=== PATIENT | female | born 1975 | race Caucasian/White ===

== ENCOUNTER 2017-12-29 16:10 | Inpatient (IN) | payer MEDICAID ==
[2017-12-29 16:49] LABS: ADD MAN DIFF? NO
[2017-12-29 16:56] LABS: WHITE BLOOD COUNT 10.2 10^3/ul (4.8-10.8)
[2017-12-29 16:56] LABS: BASOPHILS % 0.2 % (0.0-2.0); EOSINOPHILS # 0.1 10^3/ul (0.0-0.5); EOSINOPHILS % 0.5 % (0.0-7.0); HEMATOCRIT 32.6 % (37.0-47.0); HEMOGLOBIN 11.3 g/dl (12.0-16.0); LYMPHOCYTES # 1.3 10^3/ul (0.8-2.9); LYMPHOCYTES % 12.9 % (15.0-51.0); MEAN CORPUSCULAR HEMOGLOBIN 31.3 pg (29.0-33.0); MEAN CORPUSCULAR HGB CONC 34.7 g/dl (32.0-37.0); MEAN CORPUSCULAR VOLUME 90.3 fl (82.0-101.0); MEAN PLATELET VOLUME 10.5 fl (7.4-10.4); MONOCYTE # 0.7 10^3/ul (0.3-0.9); MONOCYTES % 7.2 % (0.0-11.0); NEUTROPHILS % 78.8 % (39.0-77.0); PLATELET COUNT 137 10^3/UL (140-415); RED BLOOD COUNT 3.61 10^6/ul (4.20-5.40); RED CELL DISTRIBUTION WIDTH 14.8 % (11.5-14.5)
[2017-12-29] MEDS: ACETAMINOPHEN 325 MG TAB PO ×3 (16:58→22:18)
[2017-12-29] MEDS: LABETALOL HCL 20MG INJ IV ×3 (16:59→19:24)
[2017-12-29] MEDS ORDERED: ONDANSETRON 4 MG INJ IV (17:00)
[2017-12-29 17:07] LABS: ADD UMIC YES; UR ASCORBIC ACID NEGATIVE (NEGATIVE); UR BACTERIA MANY /HPF (NONE SEEN); UR BILIRUBIN (Dip) NEGATIVE (NEGATIVE); UR BLOOD (Dip) 1+ mg/dL (NEGATIVE); UR CLARITY CLOUDY (CLEAR); UR COLOR YELLOW (YELLOW); UR GLUCOSE (Dip) NEGATIVE (NEGATIVE); UR KETONES (Dip) NEGATIVE (NEGATIVE); UR LEUKOCYTE ESTERASE (Dip) 3+ Leu/ul (NEGATIVE); UR NITRITE (Dip) NEGATIVE (NEGATIVE); UR RBC 47 /HPF (0-5); UR SPECIFIC GRAVITY (Dip) 1.014 (1.003-1.030); UR SQUAMOUS EPITHELIAL CELL MODERATE /HPF (FEW); UR TOTAL PROTEIN (Dip) 2+ mg/dl (NEGATIVE); UR UROBILINOGEN (Dip) NEGATIVE (NEGATIVE); UR WBC 83 /HPF (0-5)
[2017-12-29 17:14] LABS: ALANINE AMINOTRANSFERASE 82 IU/L (13-69); ALBUMIN 3.6 g/dl (3.3-4.9); ALKALINE PHOSPHATASE 103 IU/L (42-121); ANION GAP 11 (8-16); ASPARTATE AMINO TRANSFERASE 62 IU/L (15-46); BILIRUBIN,INDIRECT 0.6 mg/dl (0-1.1); BILIRUBIN,TOTAL 0.6 mg/dl (0.2-1.3); BLOOD UREA NITROGEN 38 mg/dl (7-20); CALCIUM 8.9 mg/dl (8.4-10.2); CARBON DIOXIDE 18 mmol/L (21-31); CHLORIDE 114 mmol/L (97-110); CREATININE 2.22 mg/dl (0.44-1.00); GLUCOSE 102 mg/dl (70-220); POTASSIUM 4.1 mmol/L (3.5-5.1); SODIUM 139 mmol/L (135-144); TOTAL PROTEIN 6.6 g/dl (6.1-8.1)
[2017-12-29] MEDS: CEFTRIAXONE 1 GM/50 ML (PMX) 50 ML IVPB (18:17)
[2017-12-29] MEDS ORDERED: NACL 0.9% 3 ML SYG IV (18:30)
[2017-12-29] MEDS: hydrALAzine 20 MG INJ IV (19:19)
[2017-12-29] MEDS: LABETALOL 200 MG TAB PO (22:16)
[2017-12-30] MEDS: hydrALAzine 20 MG INJ IV (00:30)
[2017-12-30] MEDS: ONDANSETRON 4 MG INJ IV (03:36)
[2017-12-30] MEDS: ACETAMINOPHEN 325 MG TAB PO ×2 (05:13→14:03)
[2017-12-30 06:48] LABS: ADD MAN DIFF? NO
[2017-12-30 07:14] LABS: ALANINE AMINOTRANSFERASE 92 IU/L (13-69); ALBUMIN 3.2 g/dl (3.3-4.9); ALKALINE PHOSPHATASE 75 IU/L (42-121); ANION GAP 12 (8-16); ASPARTATE AMINO TRANSFERASE 78 IU/L (15-46); BILIRUBIN,INDIRECT 0.4 mg/dl (0-1.1); BILIRUBIN,TOTAL 0.4 mg/dl (0.2-1.3); BLOOD UREA NITROGEN 31 mg/dl (7-20); CALCIUM 8.8 mg/dl (8.4-10.2); CARBON DIOXIDE 16 mmol/L (21-31); CHLORIDE 115 mmol/L (97-110); CHOL/HDL RATIO 2.9 RATIO; CHOLESTEROL 144 mg/dl (100-200); GLUCOSE 110 mg/dl (70-220); HDL CHOLESTEROL 49 mg/dl (34-88); LDL CHOLESTEROL,CALCULATED 54 mg/dl; POTASSIUM 4.3 mmol/L (3.5-5.1); SODIUM 139 mmol/L (135-144); TOTAL PROTEIN 6.1 g/dl (6.1-8.1); TRIGLYCERIDES 203 mg/dl (0-149)
[2017-12-30 07:14] LABS: MAGNESIUM 2.1 mg/dl (1.7-2.5)
[2017-12-30 07:15] LABS: PHOSPHORUS 3.8 mg/dl (2.5-4.9)
[2017-12-30 07:29] LABS: FREE T4 (FREE THYROXINE) 1.39 ng/dl (0.64-1.79)
[2017-12-30 07:43] LABS: THYROID STIMULATING HORMONE 0.784 MIU/L (0.465-4.680)
[2017-12-30] MEDS: PRENATAL VITAMIN PO (07:59)
[2017-12-30] MEDS: LABETALOL 200 MG TAB PO ×2 (08:03→20:35)
[2017-12-30 08:05] LABS: BASOPHILS % 0.3 % (0.0-2.0); HEMATOCRIT 28.9 % (37.0-47.0); HEMOGLOBIN 9.9 g/dl (12.0-16.0); LYMPHOCYTES # 1.1 10^3/ul (0.8-2.9); LYMPHOCYTES % 13.8 % (15.0-51.0); MEAN CORPUSCULAR HGB CONC 34.3 g/dl (32.0-37.0); MEAN CORPUSCULAR VOLUME 90.6 fl (82.0-101.0); MEAN PLATELET VOLUME 11.4 fl (7.4-10.4); MONOCYTE # 0.5 10^3/ul (0.3-0.9); MONOCYTES % 6.3 % (0.0-11.0); NEUTROPHIL # 6.3 10^3/ul (1.6-7.5); NEUTROPHILS % 79.3 % (39.0-77.0); PLATELET COUNT 127 10^3/UL (140-415); RED BLOOD COUNT 3.19 10^6/ul (4.20-5.40); RED CELL DISTRIBUTION WIDTH 15.4 % (11.5-14.5)
[2017-12-30 12:08] LABS: HEMOGLOBIN A1C 4.9 % (0-5.9)
[2017-12-30] MEDS: LABETALOL HCL 20MG INJ IV ×2 (16:07→18:12)
[2017-12-30] MEDS: CEFTRIAXONE 1 GM/50 ML (PMX) 50 ML IVPB (17:23)
[2017-12-30] MEDS: METHYLDOPA 250 MG TAB PO (20:36)
[2017-12-30] MEDS: DOCUSATE SODIUM 100 MG CAP PO (20:38)
[2017-12-31] MEDS: LABETALOL HCL 20MG INJ IV ×5 (00:10→16:09)
[2017-12-31 07:10] LABS: ADD MAN DIFF? NO
[2017-12-31 07:19] LABS: BASOPHILS % 0.4 % (0.0-2.0); EOSINOPHILS # 0.1 10^3/ul (0.0-0.5); EOSINOPHILS % 0.7 % (0.0-7.0); HEMATOCRIT 27.9 % (37.0-47.0); HEMOGLOBIN 9.6 g/dl (12.0-16.0); LYMPHOCYTES # 1.4 10^3/ul (0.8-2.9); LYMPHOCYTES % 17.7 % (15.0-51.0); MEAN CORPUSCULAR HEMOGLOBIN 31.9 pg (29.0-33.0); MEAN CORPUSCULAR HGB CONC 34.4 g/dl (32.0-37.0); MEAN CORPUSCULAR VOLUME 92.7 fl (82.0-101.0); MEAN PLATELET VOLUME 11.7 fl (7.4-10.4); MONOCYTE # 0.5 10^3/ul (0.3-0.9); MONOCYTES % 7.1 % (0.0-11.0); NEUTROPHIL # 5.7 10^3/ul (1.6-7.5); NEUTROPHILS % 73.8 % (39.0-77.0); PLATELET COUNT 124 10^3/UL (140-415); RED BLOOD COUNT 3.01 10^6/ul (4.20-5.40); RED CELL DISTRIBUTION WIDTH 15.2 % (11.5-14.5)
[2017-12-31 07:19] LABS: WHITE BLOOD COUNT 7.6 10^3/ul (4.8-10.8)
[2017-12-31 08:05] LABS: ALANINE AMINOTRANSFERASE 74 IU/L (13-69); ALBUMIN 2.9 g/dl (3.3-4.9); ALKALINE PHOSPHATASE 75 IU/L (42-121); ANION GAP 9 (8-16); ASPARTATE AMINO TRANSFERASE 30 IU/L (15-46); BILIRUBIN,INDIRECT 0.5 mg/dl (0-1.1); BILIRUBIN,TOTAL 0.5 mg/dl (0.2-1.3); BLOOD UREA NITROGEN 24 mg/dl (7-20); CALCIUM 8.6 mg/dl (8.4-10.2); CARBON DIOXIDE 19 mmol/L (21-31); CHLORIDE 114 mmol/L (97-110); CREATININE 2.16 mg/dl (0.44-1.00); GLUCOSE 87 mg/dl (70-220); POTASSIUM 4.1 mmol/L (3.5-5.1); SODIUM 138 mmol/L (135-144); TOTAL PROTEIN 5.3 g/dl (6.1-8.1)
[2017-12-31 08:12] LABS: MAGNESIUM 2.3 mg/dl (1.7-2.5)
[2017-12-31 08:12] LABS: PHOSPHORUS 3.9 mg/dl (2.5-4.9)
[2017-12-31] MEDS: METHYLDOPA 250 MG TAB PO ×2 (08:45→20:15)
[2017-12-31] MEDS: DOCUSATE SODIUM 100 MG CAP PO ×2 (08:45→20:13)
[2017-12-31] MEDS: LABETALOL 200 MG TAB PO ×3 (08:45→21:18)
[2017-12-31] MEDS: PRENATAL VITAMIN PO (08:45)
[2017-12-31] MEDS: ACETAMINOPHEN 325 MG TAB PO ×3 (10:29→23:21)
[2017-12-31 10:41] LABS: LACTATE DEHYDROGENASE 757 IU/L (313-618)
[2017-12-31] MEDS: hydrALAzine 20 MG INJ IV ×4 (12:56→22:06)
[2017-12-31] MEDS: CEFTRIAXONE 1 GM/50 ML (PMX) 50 ML IVPB (17:26)
[2017-12-31] MEDS: ONDANSETRON 4 MG INJ IV (18:08)
[2017-12-31 23:09] LABS: ADD UMIC YES; UR AMORPHOUS CRYSTAL FEW /HPF (NONE SEEN); UR ASCORBIC ACID NEGATIVE (NEGATIVE); UR BACTERIA FEW /HPF (NONE SEEN); UR BILIRUBIN (Dip) NEGATIVE (NEGATIVE); UR BLOOD (Dip) NEGATIVE (NEGATIVE); UR CLARITY CLOUDY (CLEAR); UR COLOR YELLOW (YELLOW); UR GLUCOSE (Dip) NEGATIVE (NEGATIVE); UR KETONES (Dip) NEGATIVE (NEGATIVE); UR LEUKOCYTE ESTERASE (Dip) 3+ Leu/ul (NEGATIVE); UR NITRITE (Dip) NEGATIVE (NEGATIVE); UR RBC 23 /HPF (0-5); UR SPECIFIC GRAVITY (Dip) 1.014 (1.003-1.030); UR SQUAMOUS EPITHELIAL CELL FEW /HPF (FEW); UR TOTAL PROTEIN (Dip) 2+ mg/dl (NEGATIVE); UR UROBILINOGEN (Dip) NEGATIVE (NEGATIVE); UR WBC 20 /HPF (0-5)
[2017-12-31 23:14] LABS: SODIUM,URINE RANDOM 46 mmol/L (30-90)
[2017-12-31 23:23] LABS: AMPHETAMINE/METHAMPHETAMINE Negative (NEGATIVE); BARBITURATES Negative (NEGATIVE); BENZODIAZEPINES Negative (NEGATIVE); CANNABINOIDS Negative (NEGATIVE); COCAINE Negative (NEGATIVE); OPIATES Negative (NEGATIVE)
[2017-12-31 23:27] LABS: CREATININE,URINE RANDOM 82.38 mg/dl (20-320)
[2018-01-01] MEDS: hydrALAzine 20 MG INJ IV ×3 (00:29→17:33)
[2018-01-01] MEDS: ACETAMINOPHEN 1000MG/100ML IV 100 ML IVPB ×2 (00:29→08:52)
[2018-01-01] MEDS: ONDANSETRON 4 MG INJ IV ×2 (00:37→08:52)
[2018-01-01 05:12] LABS: ADD MAN DIFF? NO
[2018-01-01 05:23] LABS: BASOPHILS % 0.1 % (0.0-2.0); EOSINOPHILS % 0.1 % (0.0-7.0); HEMATOCRIT 26.3 % (37.0-47.0); HEMOGLOBIN 8.7 g/dl (12.0-16.0); LYMPHOCYTES # 0.9 10^3/ul (0.8-2.9); LYMPHOCYTES % 13.5 % (15.0-51.0); MEAN CORPUSCULAR HEMOGLOBIN 30.7 pg (29.0-33.0); MEAN CORPUSCULAR HGB CONC 33.1 g/dl (32.0-37.0); MEAN CORPUSCULAR VOLUME 92.9 fl (82.0-101.0); MEAN PLATELET VOLUME 11.2 fl (7.4-10.4); MONOCYTE # 0.4 10^3/ul (0.3-0.9); MONOCYTES % 6.2 % (0.0-11.0); NEUTROPHIL # 5.6 10^3/ul (1.6-7.5); NEUTROPHILS % 79.8 % (39.0-77.0); PLATELET COUNT 123 10^3/UL (140-415); RED BLOOD COUNT 2.83 10^6/ul (4.20-5.40); RED CELL DISTRIBUTION WIDTH 15.7 % (11.5-14.5)
[2018-01-01] MEDS: LABETALOL 200 MG TAB PO ×3 (05:46→21:09)
[2018-01-01 06:11] LABS: ANION GAP 11 (8-16); BLOOD UREA NITROGEN 26 mg/dl (7-20); CALCIUM 8.5 mg/dl (8.4-10.2); CARBON DIOXIDE 17 mmol/L (21-31); CHLORIDE 114 mmol/L (97-110); CREATININE 2.23 mg/dl (0.44-1.00); GLUCOSE 102 mg/dl (70-220); MAGNESIUM 2.3 mg/dl (1.7-2.5); PHOSPHORUS 4.6 mg/dl (2.5-4.9); SODIUM 138 mmol/L (135-144)
[2018-01-01] MEDS: METHYLDOPA 250 MG TAB PO ×2 (08:52→20:20)
[2018-01-01] MEDS: DOCUSATE SODIUM 100 MG CAP PO ×2 (08:52→20:20)
[2018-01-01] MEDS: PRENATAL VITAMIN PO (08:52)
[2018-01-01] MEDS: ACETAMINOPHEN 325 MG TAB PO (17:12)
[2018-01-01] MEDS: CEFTRIAXONE 1 GM/50 ML (PMX) 50 ML IVPB (17:16)
[2018-01-02] MEDS: hydrALAzine 20 MG INJ IV ×4 (05:05→16:04)
[2018-01-02] MEDS: LABETALOL 200 MG TAB PO ×3 (05:55→21:25)
[2018-01-02 06:37] LABS: ADD MAN DIFF? NO
[2018-01-02 06:45] LABS: WHITE BLOOD COUNT 6.6 10^3/ul (4.8-10.8)
[2018-01-02 06:45] LABS: BASOPHILS % 0.3 % (0.0-2.0); EOSINOPHILS % 0.5 % (0.0-7.0); HEMOGLOBIN 8.5 g/dl (12.0-16.0); LYMPHOCYTES % 15.7 % (15.0-51.0); MEAN CORPUSCULAR HEMOGLOBIN 30.5 pg (29.0-33.0); MEAN CORPUSCULAR HGB CONC 32.7 g/dl (32.0-37.0); MEAN CORPUSCULAR VOLUME 93.2 fl (82.0-101.0); MEAN PLATELET VOLUME 10.6 fl (7.4-10.4); MONOCYTE # 0.6 10^3/ul (0.3-0.9); MONOCYTES % 8.8 % (0.0-11.0); NEUTROPHIL # 4.9 10^3/ul (1.6-7.5); NEUTROPHILS % 74.2 % (39.0-77.0); PLATELET COUNT 127 10^3/UL (140-415); RED BLOOD COUNT 2.79 10^6/ul (4.20-5.40); RED CELL DISTRIBUTION WIDTH 15.8 % (11.5-14.5)
[2018-01-02] MEDS: ACETAMINOPHEN 325 MG TAB PO ×2 (07:04→15:25)
[2018-01-02 07:17] LABS: ANION GAP 10 (8-16); BLOOD UREA NITROGEN 24 mg/dl (7-20); CALCIUM 8.5 mg/dl (8.4-10.2); CARBON DIOXIDE 19 mmol/L (21-31); CHLORIDE 112 mmol/L (97-110); GLUCOSE 102 mg/dl (70-220); MAGNESIUM 2.5 mg/dl (1.7-2.5); PHOSPHORUS 4.5 mg/dl (2.5-4.9); SODIUM 137 mmol/L (135-144)
[2018-01-02 08:47] LABS: ALANINE AMINOTRANSFERASE 45 IU/L (13-69); ALKALINE PHOSPHATASE 67 IU/L (42-121); ASPARTATE AMINO TRANSFERASE 35 IU/L (15-46); BILIRUBIN,INDIRECT 0.3 mg/dl (0-1.1); BILIRUBIN,TOTAL 0.3 mg/dl (0.2-1.3); TOTAL PROTEIN 5.5 g/dl (6.1-8.1)
[2018-01-02] MEDS: METHYLDOPA 250 MG TAB PO ×2 (08:47→20:09)
[2018-01-02] MEDS: PRENATAL VITAMIN PO (08:47)
[2018-01-02] MEDS: DOCUSATE SODIUM 100 MG CAP PO ×2 (08:47→20:08)
[2018-01-02 09:11] LABS: HAAIG REFLEX REFLEX FILED
[2018-01-02 10:01] LABS: LACTATE DEHYDROGENASE 695 IU/L (313-618)
[2018-01-02 10:08] LABS: COMPLEMENT C3 93 mg/dl (88-165)
[2018-01-02 10:13] LABS: HEPATITIS B SURFACE ANTIGEN NEGATIVE (NEGATIVE)
[2018-01-02 10:31] LABS: HEPATITIS B CORE ANTIBODY NEGATIVE (NEGATIVE); HEPATITIS C VIRAL ANTIBODY NEGATIVE (NEGATIVE)
[2018-01-02 13:19] LABS: COMPLEMENT C4 34 mg/dl (14-44)
[2018-01-02] MEDS: NIFEdipine (XL) 60 MG TAB PO (14:55)
[2018-01-02 16:31] LABS: RHEUMATOID FACTOR NEGATIVE (NEGATIVE)
[2018-01-02] MEDS: CEFTRIAXONE 1 GM/50 ML (PMX) 50 ML IVPB (17:00)
[2018-01-02] MEDS ORDERED: LABETALOL HCL 20MG INJ (17:27)
[2018-01-02] MEDS: LABETALOL HCL 20MG INJ IV ×2 (17:39→21:42)
[2018-01-02] MEDS: ACETAMINOPHEN 1000MG/100ML IV 100 ML IVPB (19:41)
[2018-01-03] MEDS: ACETAMINOPHEN 1000MG/100ML IV 100 ML IVPB ×4 (01:35→23:47)
[2018-01-03] MEDS: LABETALOL 200 MG TAB PO ×3 (05:24→22:05)
[2018-01-03 05:28] LABS: ADD MAN DIFF? NO
[2018-01-03 05:36] LABS: WHITE BLOOD COUNT 5.2 10^3/ul (4.8-10.8)
[2018-01-03 05:36] LABS: BASOPHILS % 0.4 % (0.0-2.0); EOSINOPHILS % 0.6 % (0.0-7.0); HEMATOCRIT 24.8 % (37.0-47.0); HEMOGLOBIN 8.2 g/dl (12.0-16.0); MEAN CORPUSCULAR HEMOGLOBIN 31.2 pg (29.0-33.0); MEAN CORPUSCULAR HGB CONC 33.1 g/dl (32.0-37.0); MEAN CORPUSCULAR VOLUME 94.3 fl (82.0-101.0); MEAN PLATELET VOLUME 11.5 fl (7.4-10.4); MONOCYTE # 0.6 10^3/ul (0.3-0.9); MONOCYTES % 10.6 % (0.0-11.0); NEUTROPHIL # 3.5 10^3/ul (1.6-7.5); PLATELET COUNT 128 10^3/UL (140-415); RED BLOOD COUNT 2.63 10^6/ul (4.20-5.40); RED CELL DISTRIBUTION WIDTH 15.6 % (11.5-14.5)
[2018-01-03 06:13] LABS: ANION GAP 12 (8-16); BLOOD UREA NITROGEN 23 mg/dl (7-20); CALCIUM 8.3 mg/dl (8.4-10.2); CARBON DIOXIDE 18 mmol/L (21-31); CHLORIDE 110 mmol/L (97-110); CREATININE 2.42 mg/dl (0.44-1.00); GLUCOSE 97 mg/dl (70-220); MAGNESIUM 2.5 mg/dl (1.7-2.5); PHOSPHORUS 4.8 mg/dl (2.5-4.9); POTASSIUM 3.5 mmol/L (3.5-5.1); SODIUM 136 mmol/L (135-144)
[2018-01-03] MEDS: DOCUSATE SODIUM 100 MG CAP PO ×2 (08:28→21:01)
[2018-01-03] MEDS: PRENATAL VITAMIN PO (08:28)
[2018-01-03] MEDS: METHYLDOPA 250 MG TAB PO ×2 (08:28→21:04)
[2018-01-03] MEDS: NIFEdipine (XL) 60 MG TAB PO ×2 (08:29→13:23)
[2018-01-03] MEDS: CEFTRIAXONE 1 GM/50 ML (PMX) 50 ML IVPB (17:40)
[2018-01-04 05:29] LABS: ADD MAN DIFF? NO
[2018-01-04 05:31] LABS: BASOPHILS % 0.3 % (0.0-2.0); EOSINOPHILS # 0.1 10^3/ul (0.0-0.5); EOSINOPHILS % 0.9 % (0.0-7.0); HEMATOCRIT 24.1 % (37.0-47.0); LYMPHOCYTES % 17.8 % (15.0-51.0); MEAN CORPUSCULAR HEMOGLOBIN 31.4 pg (29.0-33.0); MEAN CORPUSCULAR HGB CONC 33.2 g/dl (32.0-37.0); MEAN CORPUSCULAR VOLUME 94.5 fl (82.0-101.0); MEAN PLATELET VOLUME 11.1 fl (7.4-10.4); MONOCYTE # 0.5 10^3/ul (0.3-0.9); MONOCYTES % 8.5 % (0.0-11.0); NEUTROPHIL # 4.2 10^3/ul (1.6-7.5); NEUTROPHILS % 72.2 % (39.0-77.0); PLATELET COUNT 141 10^3/UL (140-415); RED BLOOD COUNT 2.55 10^6/ul (4.20-5.40); RED CELL DISTRIBUTION WIDTH 15.5 % (11.5-14.5)
[2018-01-04 05:31] LABS: WHITE BLOOD COUNT 5.9 10^3/ul (4.8-10.8)
[2018-01-04] MEDS: LABETALOL 200 MG TAB PO ×3 (05:54→22:02)
[2018-01-04 05:56] LABS: ANION GAP 11 (8-16); BLOOD UREA NITROGEN 22 mg/dl (7-20); CALCIUM 8.1 mg/dl (8.4-10.2); CARBON DIOXIDE 18 mmol/L (21-31); CHLORIDE 111 mmol/L (97-110); CREATININE 2.28 mg/dl (0.44-1.00); GLUCOSE 97 mg/dl (70-220); MAGNESIUM 2.4 mg/dl (1.7-2.5); PHOSPHORUS 4.3 mg/dl (2.5-4.9); POTASSIUM 3.3 mmol/L (3.5-5.1); SODIUM 137 mmol/L (135-144)
[2018-01-04] MEDS: ACETAMINOPHEN 1000MG/100ML IV 100 ML IVPB ×3 (06:46→20:02)
[2018-01-04] MEDS: POTASSIUM CHLORIDE 20 MEQ POWDER FOR ORAL SOLN PO (07:01)
[2018-01-04] MEDS: POTASSIUM CHLORIDE (SR) 20 MEQ TAB PO (08:23)
[2018-01-04] MEDS: METHYLDOPA 250 MG TAB PO ×2 (08:23→20:02)
[2018-01-04] MEDS: DOCUSATE SODIUM 100 MG CAP PO ×2 (08:24→20:02)
[2018-01-04] MEDS: NIFEdipine (XL) 60 MG TAB PO (08:24)
[2018-01-04] MEDS: PRENATAL VITAMIN PO (08:26)
[2018-01-04] MEDS: LABETALOL HCL 20MG INJ IV (11:35)
[2018-01-04] MEDS: CEFTRIAXONE 1 GM/50 ML (PMX) 50 ML IVPB (18:25)
[2018-01-04] MEDS: ACETAMINOPHEN 325 MG TAB PO (18:26)
[2018-01-05] MEDS: hydrALAzine 20 MG INJ IV ×5 (04:24→23:50)
[2018-01-05] MEDS: LABETALOL HCL 20MG INJ IV ×3 (05:17→12:32)
[2018-01-05] MEDS: LABETALOL 200 MG TAB PO ×3 (06:04→22:53)
[2018-01-05 07:12] LABS: ANION GAP 10 (8-16); BLOOD UREA NITROGEN 20 mg/dl (7-20); CALCIUM 8.5 mg/dl (8.4-10.2); CARBON DIOXIDE 18 mmol/L (21-31); CHLORIDE 112 mmol/L (97-110); CREATININE 2.26 mg/dl (0.44-1.00); GLUCOSE 103 mg/dl (70-220); MAGNESIUM 2.4 mg/dl (1.7-2.5); PHOSPHORUS 3.7 mg/dl (2.5-4.9); SODIUM 136 mmol/L (135-144)
[2018-01-05] MEDS: ACETAMINOPHEN 325 MG TAB PO ×2 (07:25→23:50)
[2018-01-05] MEDS: NIFEdipine (XL) 60 MG TAB PO (07:31)
[2018-01-05] MEDS: DOCUSATE SODIUM 100 MG CAP PO ×2 (07:31→21:38)
[2018-01-05] MEDS: PRENATAL VITAMIN PO (09:13)
[2018-01-05] MEDS: METHYLDOPA 250 MG TAB PO ×2 (09:13→21:39)
[2018-01-05] MEDS ORDERED: VITAMIN A & D 5 GM OINT PACKET TOP (09:54)
[2018-01-05] MEDS: CEFTRIAXONE 1 GM/50 ML (PMX) 50 ML IVPB (17:24)
[2018-01-06] MEDS: LABETALOL HCL 20MG INJ IV ×2 (04:04→15:52)
[2018-01-06] MEDS: hydrALAzine 20 MG INJ IV ×3 (06:12→23:30)
[2018-01-06] MEDS: LABETALOL 200 MG TAB PO ×3 (06:15→21:35)
[2018-01-06 06:49] LABS: ADD MAN DIFF? NO
[2018-01-06 06:53] LABS: BASOPHILS % 0.2 % (0.0-2.0); EOSINOPHILS % 0.4 % (0.0-7.0); LYMPHOCYTES # 0.9 10^3/ul (0.8-2.9); LYMPHOCYTES % 18.7 % (15.0-51.0); MEAN CORPUSCULAR HEMOGLOBIN 31.7 pg (29.0-33.0); MEAN CORPUSCULAR HGB CONC 33.3 g/dl (32.0-37.0); MEAN CORPUSCULAR VOLUME 95.1 fl (82.0-101.0); MONOCYTE # 0.4 10^3/ul (0.3-0.9); MONOCYTES % 8.9 % (0.0-11.0); NEUTROPHIL # 3.3 10^3/ul (1.6-7.5); NEUTROPHILS % 71.4 % (39.0-77.0); PLATELET COUNT 162 10^3/UL (140-415); RED BLOOD COUNT 2.84 10^6/ul (4.20-5.40); RED CELL DISTRIBUTION WIDTH 14.9 % (11.5-14.5)
[2018-01-06 06:53] LABS: WHITE BLOOD COUNT 4.6 10^3/ul (4.8-10.8)
[2018-01-06 07:45] LABS: ANION GAP 13 (8-16); BLOOD UREA NITROGEN 20 mg/dl (7-20); CALCIUM 8.6 mg/dl (8.4-10.2); CARBON DIOXIDE 17 mmol/L (21-31); CHLORIDE 112 mmol/L (97-110); CREATININE 2.13 mg/dl (0.44-1.00); GLUCOSE 115 mg/dl (70-220); MAGNESIUM 2.3 mg/dl (1.7-2.5); PHOSPHORUS 3.7 mg/dl (2.5-4.9); POTASSIUM 3.8 mmol/L (3.5-5.1); SODIUM 138 mmol/L (135-144)
[2018-01-06] MEDS: PRENATAL VITAMIN PO (08:32)
[2018-01-06] MEDS: DOCUSATE SODIUM 100 MG CAP PO ×2 (08:32→20:17)
[2018-01-06] MEDS: NIFEdipine (XL) 60 MG TAB PO (08:32)
[2018-01-06] MEDS: METHYLDOPA 250 MG TAB PO ×2 (08:33→20:17)
[2018-01-06] MEDS: CEFTRIAXONE 1 GM/50 ML (PMX) 50 ML IVPB (17:48)
[2018-01-06] MEDS: ACETAMINOPHEN 325 MG TAB PO (21:34)
[2018-01-07] MEDS: MELATONIN 3 MG TABLET PO (01:10)
[2018-01-07] MEDS: hydrALAzine 20 MG INJ IV (04:36)
[2018-01-07] MEDS: LABETALOL 200 MG TAB PO ×2 (06:28→13:11)
[2018-01-07 07:25] LABS: ANION GAP 13 (8-16); BLOOD UREA NITROGEN 24 mg/dl (7-20); CALCIUM 8.6 mg/dl (8.4-10.2); CARBON DIOXIDE 18 mmol/L (21-31); CHLORIDE 111 mmol/L (97-110); CREATININE 1.95 mg/dl (0.44-1.00); GLUCOSE 94 mg/dl (70-220); MAGNESIUM 2.2 mg/dl (1.7-2.5); PHOSPHORUS 3.7 mg/dl (2.5-4.9); POTASSIUM 3.5 mmol/L (3.5-5.1); SODIUM 138 mmol/L (135-144)
[2018-01-07] MEDS: ACETAMINOPHEN 325 MG TAB PO (08:54)
[2018-01-07] MEDS: PRENATAL VITAMIN PO (08:55)
[2018-01-07] MEDS: DOCUSATE SODIUM 100 MG CAP PO (08:55)
[2018-01-07] MEDS: NIFEdipine (XL) 60 MG TAB PO (08:56)
[2018-01-07] MEDS: METHYLDOPA 250 MG TAB PO (08:56)
[2018-01-14 14:04] LABS: CREATININE, RANDOM URINE 91 mg/dL (20-320); MICROALBUMIN 72.1 mg/dL; MICROALBUMIN/CREATININE RATIO 792 (<30)
[2018-01-14 14:06] LABS: % CRYOCRIT NONE DETECTED (NONE DETECTED); ANA SCREEN NEGATIVE (NEGATIVE); ANCA SCREEN NEGATIVE (NEGATIVE); ANTI-DNA (DOUBLE STRANDED) <95 U/mL (< 301); MYELOPEROXIDASE ANTIBODY <1.0 AI; PROTEINASE-3 ANTIBODY <1.0 AI
== END 2018-01-07 16:54 | disposition other institution (70) | DRG 781 ==
LOC: ICU 12-31 13:30 → E/R 16:10 → 6WM 01-04 22:42 → MS4 16:55
DX: O11.1 Pre-existing hypertension with pre-eclampsia, first trimester (principal); N17.9 Acute kidney failure, unspecified; E87.2 Acidosis; O23.41 Unspecified infection of urinary tract in pregnancy, first trimester; I16.1 Hypertensive emergency; O99.111 Other diseases of the blood and blood-forming organs and certain disorders involving the immune mechanism complicating pregnancy, first trimester; O10.31 Pre-existing hypertensive heart and chronic kidney disease complicating pregnancy; O26.891 Other specified pregnancy related conditions, first trimester; O10.411 Pre-existing secondary hypertension complicating pregnancy, first trimester; O99.011 Anemia complicating pregnancy, first trimester; E83.9 Disorder of mineral metabolism, unspecified; D69.6 Thrombocytopenia, unspecified; B96.20 Unspecified Escherichia coli [E. coli] as the cause of diseases classified elsewhere; O09.521 Supervision of elderly multigravida, first trimester; O09.31 Supervision of pregnancy with insufficient antenatal care, first trimester; Z3A.14 14 weeks gestation of pregnancy
CPT/HCPCS: 36415; 76775; 76805; 80048; 80053; 80061; 80076; 80307; 81001; 81003; 82043; 82595; 83036; 83615; 83735; 84100; 84155; 84300; 84439; 84443; 84702; 85025; 86021; 86038; 86160; 86226; 86430; 86704; 86709; 86803; 86900; 86901; 87081; 87086; 87340; 93306; 96374; 99291-25